=== PATIENT | female | born 1980 | race Caucasian/White ===

== ENCOUNTER 2016-09-03 17:44 | Inpatient (IN) | payer OTHER ==
--- NOTE | ~2016-09-03 | PA ---
Unit #: [id number] #: [id number] Patient: [facility] CABRALES [id number] [facility] [address] [place] [address] [id number] MR#: [id number] NAME: MENA CABRALES ROOM: P185 Age: 36 Sex: F Admission Date: 09/03/2016 : 1980 Date of Assessment: 09/04/2016 Attending Physician: Godfrey Barba M.D. Admitting Physician: Godfrey Barba M.D. Primary Care Physician: [facility] PSYCHIATRIC ASSESSMENT DATE OF SERVICE 09/04/2016. IDENTIFYING DATA Ms. Cabrales is a 36-year-old single white female, who is a resident of [place], [place], and is very well known to us from previous multiple encounters and was self-referred to the hospital on a voluntary basis. CHIEF COMPLAINT "I'm consuming large amounts of alcohol daily." HISTORY OF PRESENT ILLNESS Ms. Cabrales is a 36-year-old white female with alcohol dependence, who was self-referred to the hospital stating that she has been consuming large amounts of alcohol on a daily basis and that she is going through issues with CPS with her daughter and drinking alcohol daily for the last 3 weeks and drinking a 16-ounce beer and 4 to 5 shots and reports multiple withdrawal symptoms, experiencing night sweats, shakes, body tremors, diarrhea, poor sleep, and being tearful and agitated stating "I need a time out, I need to stop drinking." The patient reports increasing depressive symptoms with crying spells and feeling sad and hopeless and helpless and having issues coping with loss of daughters while drinking large amounts of alcohol, "I have to keep drinking to avoid withdrawal symptoms, though I just cannot handle it." She reports feelings of hopelessness and helplessness, but denies any suicidal ideations, intent, or plan. SUBSTANCE ABUSE HISTORY The patient reports extensive history of substance abuse including experimentation and abuse of alcohol, cocaine, acid, opioids, and currently, alcohol appears to be her drug of choice. PAST PSYCHIATRIC HISTORY The patient has had a history of inpatient chemical dependency treatment at [facility] marybeth Argueta several times and has a history of mood disorder and is supposed to be on Remeron; however, she has a history of poor compliance with outpatient treatment recommendation and once again has not followed up with any treatment recommendations after being discharged from the hospital and is currently not seeing a psychiatrist and is not taking any psychotropic medications. PAST MEDICAL HISTORY No acute or chronic medical illnesses. Unit #: [id number] #: [id number] Patient: MENA CABRALES ALLERGIES Demerol and trazodone. PERSONAL AND SOCIAL HISTORY A 36-year-old white female, who reports that she is single, unemployed, and has been living with a friend and has poor living situation as well as poor social support system. MENTAL STATUS EXAMINATION Young white female, who was casually dressed with fair personal hygiene, appears to be in no acute distress or discomfort. She was awake and alert on interaction with intact orientation to time, place, and person. Her mood was anxious and depressed with a congruent affect. Her speech was slow and goal directed. She denies any suicidal or homicidal ideations and also denies any auditory or visual hallucinations. Her insight and judgment remain significantly impaired. DIAGNOSTIC IMPRESSION Psychiatric: Alcohol dependence, moderate, in acute withdrawals and alcohol-induced mood disorder. Medical: None. Stressors: Moderate psychosocial stressors. TREATMENT PLAN 1. The patient has presented with a history of substance abuse and mood disorder and has been decompensating and will need inpatient hospitalization for detoxification, safety, and stabilization. We will start her on detox protocol. We will closely monitor for any worsening withdrawal symptoms. 2. Supportive therapy was provided to the patient. 3. Safe, structured, and nourishing environment will be provided. ESTIMATED LENGTH OF STAY 4 to 5 days. ABILITY TO HELP SELF Limited. WILLINGNESS TO HELP SELF The patient appears to be willing to help self. STRENGTHS 1. Communicative. 2. Cooperative. PROBLEMS 1. Chronic dysphoric symptoms. 2. Chronic chemical dependency. 3. Poor social support system. DISCHARGE CRITERIA This will be contingent upon the patient's ability to go through detox without having any significant withdrawal symptoms as well as her ability to stay safe to herself, particularly after discharge from the hospital. Dictated by... Unit #: [id number] #: [id number] Patient: MENA CABRALES Juan Carlos Echeverria/derick TD: 09/04/2016 10:22 JOB #: [id number] PSYCHIATRIC ASSESSMENT Page 1 of 1 X Godfrey Barba MD PSYCHIATRIC ASSESSMENT
--- NOTE | ~2016-09-03 | DS ---
Unit #: [id number] #: [id number] Patient: [facility]RALES [id number] [facility] [address] [place] [address] [id number] MR#: [id number] NAME: MENA CABRALES ROOM: [facility] Age: 36 Sex: F Admission Date: 09/03/2016 : 1980 Discharge Date: 09/06/2016 Attending Physician: Godfrey Barba M.D. [facility] DISCHARGE SUMMARY IDENTIFYING DATA Ms. Cabrales is a 36-year-old single white female, who is a resident of [place], [place] and is known to us from previous encounter, was self-referred to the hospital. DISCHARGE DIAGNOSES Psychiatric: Alcohol dependence, moderate, in acute withdrawals and alcohol-induced mood disorder. Medical: None. Stressors: Moderate psychosocial stressors. HISTORY OF PRESENT ILLNESS Please see initial psychiatric evaluation for details. PAST PSYCHIATRIC HISTORY Please see initial psychiatric evaluation for details. PAST MEDICAL HISTORY Please see initial psychiatric evaluation for details. HOSPITAL COURSE The patient was admitted to the adult chemical dependency unit at [facility] marybeth Argu[facility] and was oriented to the hospital environment. Routine p.r.n. medications were initiated, and she was started back on her home medications and medications were adjusted and detox protocol was initiated, but she was seen to be showing very poor insight into her situation, and once again, poor motivation towards treatment and was constantly pushing to leave, which has been a habitual pattern of her presentation and though she was encouraged to complete the treatment program, she was refusing to follow up on treatment recommendations, and initially, a 72-hour hold was initiated, but she was denying any suicidal or homicidal ideations and was not seen to be a danger to self or anyone else, and as such, it was decided that she will be discharged home and will continue treatment on an outpatient basis. DISCHARGE MEDICATIONS None. DISCHARGE CONDITION Stable. PROGNOSIS Fair. Unit #: [id number] #: [id number] Patient: MENA CABRALES Dictated by... Juan Carlos Echeverria/derick TD: 09/06/2016 19:15 JOB #: [id number] DISCHARGE SUMMARY Page 1 of 1 X Godfrey Barba MD DISCHARGE SUMMARY
--- NOTE | ~2016-09-03 | PN ---
Unit #: [id number] #: [id number] Patient: MENA CABRALES [id number] [facility] [address] [place] [address] [id number] MR#: [id number] NAME: MENA CABRALES ROOM: 85 Age: 36 Sex: F Admission Date: 09/03/2016 : 1980 Attending Physician: Godfrey Barba M.D. Admitting Physician: Godfrey Barba M.D. Primary Care Physician: [facility] PROGRESS NOTES DATE 09/05/2016 DISCUSSION Ms. Cabrales is a 36-year-old white female who was seen today and chart was reviewed and case was discussed with the staff. She has been anxious, withdrawn though has not shown any agitation, irritability and has been cooperative with treatment recommendations as she has been taking medications and tolerating them fairly well with no reported side effects. MENTAL STATUS EXAMINATION Young white female who was casually dressed with fair personal hygiene and appears to be in no acute distress or discomfort. She was awake and alert on interaction with intact orientation. Her mood was anxious with congruent affect. She denies any suicidal or homicidal ideations. Her insight and judgement remains slightly impaired. TREATMENT PLAN 1. Will continue on current medications and treatment protocol. Will monitor her response to the medications and make further adjustments as needed. 2. Will continue to follow up. Dictated by... Godfrey Barba M.D. IAA/alva TD: 09/07/2016 21:49 JOB #: [id number] Unit #: [id number] #: [id number] Patient: MENA CABRALES [facility] PROGRESS NOTES Page 1 of 1 X Godfrey Barba MD X PROGRESS NOTE
--- NOTE | ~2016-09-03 | HP ---
Unit #: [id number] #: [id number] Patient: DEEDEE CABRALES [id number] [place] [address] [id number] MR#: [id number] NAME: DEEDEE CABRALES ROOM: P185 Age: 36 Sex: F Admission Date: 09/03/2016 : 1980 Attending Physician: Godfrey Barba M.D. Admitting Physician: Godfrey Barba M.D. [facility] HISTORY AND PHYSICAL HISTORY OF PRESENT ILLNESS Deedee is a 36 year old admitted to [facility] because of her abuse of alcohol. She is detoxing. PAST MEDICAL HISTORY Long history of alcohol abuse. PAST SURGICAL HISTORY section x3 ALLERGIES Demerol. SOCIAL HISTORY Smokes one pack per day. Drinks at least 12 beers on a daily basis and denies illicit drug use. FAMILY HISTORY Medically noncontributory. REVIEW OF SYSTEMS CONSTITUTIONAL: No fever or chills. HEENT: Denies any sore throat, ear pain or runny nose. CARDIOVASCULAR: Denies chest pain, irregular heart rhythm or palpitations. CHEST: Denies shortness of breath or cough. No hemoptysis. GASTROINTESTINAL: Denies nausea, vomiting, diarrhea or chronic constipation. ENDOCRINE: Denies history of increased thirst or urination. No recent significant weight loss or gain. GENITOURINARY: Denies dysuria, frequency, or hematuria. SKIN: Denies any rashes. HEMATOLOGIC: Denies history of increased bleeding or bruising. MUSCULOSKELETAL: Denies any hot, swollen joints. No generalized muscle pain. NEUROLOGIC: Denies problems with vision or speech. No frequent, severe headaches. No numbness, tingling or weakness in any extremities. Denies loss of bladder or bowel control. CURRENT MEDICATIONS 1. Detox protocol 2. Remeron 15 mg q.h.s. Unit #: [id number] #: [id number] Patient: DEEDEE CABRALES PHYSICAL EXAMINATION GENERAL: Alert, well-nourished, in no apparent distress. VITAL SIGNS: Blood pressure 122/86, heart rate 90, respirations 16, temperature 98.6. WEIGHT: 169 pounds. HEIGHT: 5'9". SKIN: Warm and dry without rash or lesion. HEENT: Normocephalic. TMs not viewed. Oral and nasal passages clear. Conjunctivae clear. Pupils equal, round and reactive to light and accommodation. Extraocular movements intact. NECK: Supple without lymphadenopathy or thyromegaly. HEART: Regular rate and rhythm without murmur. LUNGS: Clear. ABDOMEN: Soft, nontender. : Not done. EXTREMITIES: No evidence of cyanosis, clubbing or edema. Moves all extremities without focal deficit. NEUROLOGICAL: Grossly within normal limits. Cranial Nerves: II: Visual gonzales are intact. III, IV AND : Extraocular movements are intact. Pupils are equal, round and reactive to light. V: Facial sensation is grossly normal. VII: Facial movements and expression are normal. VIII: Auditory acuity grossly intact. IX, X: Uvula is midline. Phonation is normal. XI: Patient shrugs shoulders and turns head normally. XII: Tongue protrudes in the midline. Sensory and Motor Function: Sensory and motor sensation is grossly normal. Motor: moves all extremities well. Coordination: Gait is normal. Deep Tendon Reflexes: Intact. IMPRESSION Psychiatric admission RECOMMENDATIONS PSYCHIATRIC: Per psychiatrist. MEDICAL: I see no contraindications to participating in facility's activities. MEDICAL PROGNOSIS Good. MEDICAL CONDITION Stable. Dictated by... April Pham PTonyaATonya-Terri. for Juan Carlos Velasquez/dalton TD: 09/04/2016 22:07 JOB #: [id number] Unit #: [id number] #: [id number] Patient: DEEDEE CABRALES HISTORY AND PHYSICAL Page 1 of 1 X April Pham HISTORY AND PHYSICAL
[2016-09-04 12:32] LABS: BASOPHIL# 0.1 X10e3 (0-0.3); BASOPHIL% 0.8 % (0-2.5); EOSINOPHIL# 0.2 X10e3 (0-0.7); EOSINOPHIL% 2.6 % (0.0-7.0); HEMOGLOBIN 11.9 gm/dL (12.0-16.0); LYMPHOCYTE# 1.3 X10e3 (1.0-3.5); LYMPHOCYTE% 16.5 % (17.0-45.0); MEAN CELL VOLUME 89.3 FL (83-96); MEAN CORPUSCULAR HEMOGLOBIN 29.4 PG (28-34); MEAN CORPUSCULAR HGB CONC 32.9 g/dL (30-36); MEAN PLATELET VOLUME 7.7 FL (6.5-11.5); MONOCYTE# 0.6 X10e3 (0-1.0); MONOCYTE% 7.7 % (3.0-12.0); NEUTROPHIL# 5.8 X10e3 (1.5-7.1); NEUTROPHIL% 72.4 % (40-75); PLATELET COUNT 169 X10e3 (140-420); RED BLOOD COUNT 4.03 X10e (3.90-5.30); RED CELL DISTRIBUTION WIDTH 18.3 % (11.0-15.5)
[2016-09-04 12:37] LABS: DIFF IND NO
[2016-09-04 13:35] LABS: FREE THYROXIN (T4) 0.59 ng/dL (0.58-1.64)
[2016-09-04 14:03] LABS: ALBUMIN SERUM 3.1 g/dL (3.5-5.0); BILIRUBIN,TOTAL 0.6 mg/dL (0.2-2.0); BUN/CREATININE RATIO 16.66; CREATININE SERUM 0.6 mg/dL (0.6-1.4); GLOM FILT RATE Estimated 115.6 mL/min (>60); POTASSIUM 3.4 mmol/L (3.5-5.1); PROTEIN TOTAL SERUM 5.5 g/dL (6.0-8.3)
[2016-09-05 11:02] LABS: URINE APPEARANCE CLEAR; URINE BILIRUBIN NEG (NEG); URINE BLOOD NEG (NEG); URINE COLOR DK YELLOW; URINE GLUCOSE NEG (NEG); URINE KETONE NEG (NEG); URINE LEUKOCYTE ESTERASE NEG (NEG); URINE NITRATE NEG (NEG); URINE PH 6.5 (5-8); URINE PROTEIN NEG (NEG); URINE SPECIFIC GRAVITY 1.015 (1.003-1.035); URINE UROBILINOGEN 0.2 MG/DL (NEG)
[2016-09-05 11:11] LABS: AMPHETAMINE NEG (NEG); BARBITURATES NEG (NEG); BENZODIAZEPINES POS (NEG); COCAINE NEG (NEG); MARIJUANA NEG (NEG); OPIATES NEG (NEG); TRICYCLIC ANTIDEPRESSANTS NEG (NEG); U METHADONE NEG (NEG)
== END 2016-09-06 08:27 | disposition home or self-care (01) | DRG 897 ==
LOC: P1E 17:44
PROVIDERS: Psychiatry & Neurology Psychiatry
PROC: HZ2ZZZZ Detoxification Services for Substance Abuse Treatment (ICD-10-PCS; principal; 2016-09-03)
DX: F10.230 Alcohol dependence with withdrawal, uncomplicated (principal); F10.24 Alcohol dependence with alcohol-induced mood disorder; Z88.8 Allergy status to other drugs, medicaments and biological substances; F17.210 Nicotine dependence, cigarettes, uncomplicated
CPT/HCPCS: 80053; 80307; 81003; 84439; 84443; 84703; 85025; 86592